=== PATIENT | female | born 1975 | race Caucasian/White ===

== ENCOUNTER 2018-08-17 14:48 | Outpatient (CLI) | payer OTHER ==
[2018-08-17] MEDS ORDERED: PROGESTERONE PO (15:33)
[2018-08-17 15:35] LABS: HCG UR SG 1.007 (1.003-1.030); MICROSCOPIC NOT IND
[2018-08-17 15:36] LABS: BASOPHILS # (AUTO) 0.03 x10^3/uL (0-0.1); BASOPHILS % (AUTO) 0 % (0-1); EOSINOPHILS # (AUTO) 0.22 x10^3/uL (0-0.4); EOSINOPHILS % (AUTO) 3 % (1-7); LYMPHOCYTES # (AUTO) 1.86 x10^3/uL (1-3.4); LYMPHOCYTES % (AUTO) 27 % (22-44); MD NO; MEAN CORPUSCULAR HGB CONC 32.7 g/dL (32.4-35.8); MEAN PLATELET VOLUME 8.4 fL (7.4-10.4); MONOCYTES % (AUTO) 6 % (2-9); NEUTROPHILS # (AUTO) 4.29 x10^3/uL (1.8-6.8); NEUTROPHILS % (AUTO) 63 % (42-75); PLATELET COUNT 276 x10^3/uL (130-400); RED BLOOD COUNT 4.41 x10^6/uL (3.82-5.3); RED CELL DISTRIBUTION WIDTH 12.9 % (9.6-15.2)
[2018-08-17 15:48] LABS: CULTURE INDICATED? NO
== END 2018-08-17 23:59 | disposition home or self-care (01) ==
LOC: STAR 14:48
PROVIDERS: ATTEND Obstetrics & Gynecology
DX: Z01.818 Encounter for other preprocedural examination (principal); N92.0 Excessive and frequent menstruation with regular cycle; N94.6 Dysmenorrhea, unspecified
CPT/HCPCS: 36415; 81003; 81025; 85025; 86304

== ENCOUNTER 2018-08-24 06:46 | Day surgery (SDC) | payer OTHER ==
[~2018-08-24] VITALS: Ht 172.7 cm; Wt 62.1 kg
[~2018-08-24 06:46] MED LIST: PROGESTERONE PO
[2018-08-24] MEDS ORDERED: LACTATED RINGERS 1,000 ML IV SCH (07:19)
[2018-08-24 07:31] LABS: HCG UR SG 1.019 (1.003-1.030)
[2018-08-24 07:42] VITALS: BP 99/63
[2018-08-24] MEDS ORDERED: FENTANYL PF 100 MCG/2ML ONE (07:50)
[2018-08-24] MEDS ORDERED: HYDROmorphone 2 MG/ML, 1ML IVPush PRN (08:30)
[2018-08-24] MEDS ORDERED: ACETAMINOPHEN 500 MG TABLET PO ONE (08:30)
[2018-08-24] MEDS ORDERED: FENTANYL PF 100 MCG/2ML IV PRN (08:30)
[2018-08-24] MEDS ORDERED: PROMETHAZINE 25 MG/ML, 1ML IV PRN (08:30)
[2018-08-24] MEDS ORDERED: hydrALAzine 20 MG/ML, 1ML IV PRN (08:30)
[2018-08-24] MEDS ORDERED: MEPERIDINE/PF 25MG/0.5ML IVPush PRN (08:30)
[2018-08-24] MEDS ORDERED: PROCHLORPERAZINE 5 MG/ML, 2ML IV PRN (08:30)
[2018-08-24] MEDS ORDERED: HALOPERIDOL 5 MG/ML IV PRN (08:30)
[2018-08-24] MEDS ORDERED: LABETALOL 5MG/ML, 20ML IV PRN (08:30)
[2018-08-24] MEDS ORDERED: METOPROLOL 1 MG/ML, 5ML IV PRN (08:30)
[2018-08-24] MEDS ORDERED: OXYcodone 5 MG/5 ML ORAL.SOL UDC PO PRN (08:30)
[2018-08-24] MEDS ORDERED: DIPHENHYDRAMINE 50 MG/ML, 1ML IVPush PRN (08:30)
[2018-08-24] MEDS ORDERED: GABAPENTIN 300 MG CAPSULE PO ONE (08:30)
[2018-08-24] MEDS ORDERED: BUPIVACAINE/PF-EPI 0.25% 1:200K INFIL ONE (08:36)
[2018-08-24] MEDS ORDERED: DEXAMETHASONE 4 MG/ML, 1ML ONE (09:05)
[2018-08-24] MEDS ORDERED: ONDANSETRON 2MG/ML, 2ML ONE (09:05)
[2018-08-24] MEDS ORDERED: CEFAZOLIN 1,000 MG ONE (09:05)
[2018-08-24] MEDS ORDERED: PROPOFOL 10 MG/ML, 20ML ONE (09:05)
== END 2018-08-24 11:50 | disposition home or self-care (01) ==
LOC: OUT 06:46 → MERGE 08:30 → OUT 11:50
PROVIDERS: ATTEND Obstetrics & Gynecology
DX: N84.0 Polyp of corpus uteri (principal); Z88.8 Allergy status to other drugs, medicaments and biological substances; Z82.3 Family history of stroke; Z80.41 Family history of malignant neoplasm of ovary
CPT/HCPCS: 58563; 81025; 88305; J0171; J0690; J1100; J2405; J2704; J3010; J3490; J7120